=== PATIENT | female | born 1975 | race African-American/Black ===

== ENCOUNTER 2016-09-09 09:47 | Emergency (ER) | payer OTHER ==
[~2016-09-09] VITALS: Ht 165.1 cm; Wt 72.5 kg
[~2016-09-09 09:47] MED LIST: BISM262T14 PO; OMEP20 PO
[2016-09-09] MEDS ORDERED: KETOROLAC TROMETHAMINE 60 MG/2 ML VIAL IM ONE (11:15)
[2016-09-09] MEDS ORDERED: METHOCARBAMOL 500 MG TABLET PO ONE (11:15)
[2016-09-09 11:21] VITALS: BP 121/50
== END 2016-09-09 12:24 | disposition home or self-care (01) ==
LOC: EMS 09:48
DX: S39.012A Strain of muscle, fascia and tendon of lower back, initial encounter (principal); X58.XXXA Exposure to other specified factors, initial encounter; Y93.89 Activity, other specified; Y92.9 Unspecified place or not applicable; Y99.9 Unspecified external cause status
CPT/HCPCS: 96372; 99283; J1885